=== PATIENT | male | born 1975 | race American Indian/Alaskan Native ===

== ENCOUNTER 2021-01-25 16:14 | Emergency (ER) | payer MEDICAID ==
[2021-01-25 17:14] VITALS: BP 130/80
--- NOTE | 2021-01-25 18:36 | Emergency Department Report ---
Chief Complaint: Upper Respiratory Infection Stated Complaint: PRESSURE IN HEAD / NOSE SWOLLEN Time Seen by Provider: 01/25/21 18:31 - HPI History of Present Illness: Patient is a 45-year-old male presents emergency room complaints of sinus pressure that began 2 to 3 days ago. He has associated congestion, rhinorrhea, headache. He denies any fever, nausea, vomiting, diarrhea, cough, shortness of breath, sore throat, ear pain. He states he just started taking Tylenol Sinus and Claritin. No past medical history. No allergies to medications. Vitals are normal On exam: Non toxic appearing, no acute distress atraumatic, normocephalic normal appearance of the eyes, PERRL, EOMI, no periorbital edema or ecchymosis moist mucus membranes, bilateral cerumen impactions, normal oropharynx, mild maxillary sinus tenderness palpation bilaterally regular heart rate and rhythm, no gallops, no rubs, no murmurs breath sounds are clear bilaterally, no w/r/r A&O x4, no focal neuro deficit skin is warm, dry, intact Patient is presenting with early sinusitis, he has only had symptoms for 2 to 3 days, he has no fever Symptoms have not been persisting greater than 10 days, will withhold antibiotic therapy at this time Advised patient Please take Sudafed [id number]. Please use Flonase nasal spray. Please do nasal washes. Please use Debrox ear cleaning solution kit [id number], do not use Q-tips. May take Tylenol or ibuprofen as needed for any pain. Follow-up with your primary care doctor. Return to emergency room for any new or worsening symptoms or symptoms are persisting greater than 10 days. Discussed the importance of follow-up Discussed return precautions Medical screening examination performed and there is no threat to life or limb at this time - Exam Vital Signs: Vital Signs 01/25/21 17:12 Temperature 98 F Pulse Rate 76 Respiratory 20 Rate Blood Pressure 130/80 [Right] O2 Sat by Pulse 100 Oximetry MSE screening note: Focused history and physical exam performed. Due to findings the following was ordered: ED Disposition for MSE Clinical Impression: Sinusitis Qualifiers: Sinusitis location: maxillary Chronicity: acute Recurrence: non-recurrent Qualified Code(s): J01.00 - Acute maxillary sinusitis, unspecified Disposition: TO HOME OR SELFCARE Is pt being admited?: No Does the pt Need Aspirin: No Condition: Stable Instructions: Sinusitis, Adult, [id number] Additional Instructions: Please take Sudafed [id number]. Please use Flonase nasal spray. Please do nasal washes. Please use Debrox ear cleaning solution kit [id number], do not use Q-tips. May take Tylenol or ibuprofen as needed for any pain. Follo w-up with your primary care doctor. Return to emergency room for any new or worsening symptoms or symptoms are persisting greater than 10 days. Referrals: LEI MOURA MD [Staff Physician] - 3-5 Days [facility] [Provider Group] - 3-5 Days Time of Disposition: 18:37 Print Language: FRISIAN
== END 2021-01-25 19:00 | disposition home or self-care (01) ==
LOC: ED 16:14
DX: J32.9 Chronic sinusitis, unspecified (principal)
CPT/HCPCS: 99282